=== PATIENT | male | born 1990 | race Caucasian/White ===

== ENCOUNTER 2018-04-30 17:38 | Emergency (ER) | payer BC ==
[~2018-04-30] VITALS: Ht 190.5 cm; Wt 90.7 kg
== END 2018-04-30 20:04 | disposition home or self-care (01) ==
LOC: ER 17:38
DX: S21.052A Open bite of left breast, initial encounter (principal); W50.3XXA Accidental bite by another person, initial encounter; Y93.89 Activity, other specified; Y92.89 Other specified places as the place of occurrence of the external cause; Y99.8 Other external cause status